=== PATIENT | female | born 1980 | race Caucasian/White ===

== ENCOUNTER 2019-06-10 08:24 | Emergency (ER) | payer BC ==
[~2019-06-10] VITALS: Ht 170.2 cm; Wt 108.9 kg
[2019-06-10 08:31] VITALS: BP 142/86
== END 2019-06-10 09:00 | disposition home or self-care (01) ==
LOC: M.ERS 08:24
DX: J06.9 Acute upper respiratory infection, unspecified (principal); Z98.51 Tubal ligation status